=== PATIENT | female | born 2000 | race Caucasian/White ===

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

== ENCOUNTER → 2018-01-11 | Outpatient (REF) | payer OTHER ==
[2018-01-11 17:36] LABS: ALBUMIN 4.1 GM/DL (3.2-5.2); ALBUMIN/GLOBULIN RATIO 1.03 (1.00-1.93); ALKALINE PHOSPHATASE 88 U/L (45-117); ALT/SGPT 144 U/L (12-78); ANION GAP 8 MEQ/L (8-16); AST/SGOT 85 U/L (7-37); BILIRUBIN,TOTAL 0.5 MG/DL (0.2-1.0); BLOOD UREA NITROGEN 9 MG/DL (7-18); CALCIUM LEVEL 8.8 MG/DL (8.5-10.1); CARBON DIOXIDE LEVEL 28 MEQ/L (21-32); CHLORIDE LEVEL 103 MEQ/L (98-107); CREATININE FOR GFR 0.72 MG/DL (0.55-1.30); FREE T3 4.9 PG/ML (2.9-4.5); FREE T4 1.39 NG/DL (0.78-1.33); GLUCOSE, FASTING 81 MG/DL (70-100); POTASSIUM SERUM 3.9 MEQ/L (3.5-5.1); SODIUM LEVEL 139 MEQ/L (136-145); TOTAL PROTEIN 8.1 GM/DL (6.4-8.2)
[2018-01-11 19:08] LABS: THYROGLOBULIN ANTIBODY 267.9 U/ML (<60.0); THYROID PEROXIDASE ANTIBODY 34.2 U/ML (<60.0)
[2018-01-11 19:16] LABS: BASO % 0.2 % (0.0-1.0); EOS % 0.6 % (0.0-3.0); HEMATOCRIT 43.6 % (36.0-47.0); HEMOGLOBIN 14.3 g/dl (12.0-16.0); IMMATURE GRANULOCYTE % 0.2 % (0-3.0); LYMPH % 42.5 % (24.0-44.0); MEAN CORPUSCULAR HEMOGLOBIN 28.7 pg (27.0-33.0); MEAN CORPUSCULAR HGB CONC 32.8 g/dl (32.0-36.5); MEAN CORPUSCULAR VOLUME 87.6 fl (80.0-96.0); MONO # 0.4 10^3/uL (0.0-0.8); MONO % 8.2 % (0.0-5.0); NEUTROPHILS # 2.3 10^3/uL (1.8-7.7); NEUTROPHILS % 48.3 % (36.0-66.0); PLATELET COUNT, AUTOMATED 234 10^3/uL (150-450); RED BLOOD COUNT 4.98 10^6/uL (4.00-5.40); RED CELL DISTRIBUTION WIDTH 12.2 % (11.5-14.5); WHITE BLOOD COUNT 4.7 10^3/uL (4.0-10.0)
[2018-01-11 19:54] LABS: AMORPHOUS SEDIMENT LARGE (NEGATIVE); APPEARANCE, URINE TURBID (CLEAR); BACTERIA, URINE AUTO NEGATIVE (NEGATIVE); BILIRUBIN, URINE AUTO NEGATIVE (NEGATIVE); BLOOD, URINE BLOOD NEGATIVE (NEGATIVE); COLOR, URINE YELLOW (YELLOW); GLUCOSE, URINE (UA) AUTO NEGATIVE (NEGATIVE); KETONE, URINE AUTO NEGATIVE (NEGATIVE); LEUKOCYTE ESTERASE, URINE AUTO 3+ (NEGATIVE); MUCUS, URINE SMALL (NEGATIVE); NITRITE, URINE AUTO NEGATIVE (NEGATIVE); PROTEIN, URINE AUTO 1+ mg/dL (NEGATIVE); RBC, URINE AUTO 0 /HPF (0-3); SPECIFIC GRAVITY URINE AUTO 1.027 (1.002-1.035); SQUAMOUS EPITHELIAL CELL UR AU 45 /HPF (0-6); UROBILINOGEN, URINE AUTO 0.2 mg/dL (0.0-2.0); WBC, URINE AUTO 29 /HPF (0-3)
[2018-01-12 15:27] LABS: C REACTIVE PROTEIN QUANTITATIV < 0.30 MG/DL (0.00-0.30); GAMMA GLUTAMYLTRANSPEPTIDASE 75 U/L (5-55)
[2018-01-13 10:25] LABS: HEPATITIS B SURFACE ANTIGEN NEGATIVE (NEGATIVE)
[2018-01-13 10:53] LABS: HEPATITIS B CORE ANTIBODY IGM NEGATIVE (NEGATIVE)
[2018-01-13 10:55] LABS: HEPATITIS A ANTIBODY IGM NEGATIVE (NEGATIVE)
== END ==
LOC: M SFHCCAPE 09:30
DX: R94.6 Abnormal results of thyroid function studies (principal); R11.0 Nausea

== ENCOUNTER → 2018-01-14 | Outpatient (REF) | payer BC ==
[2018-01-19 00:06] LABS: TESTOSTERONE FREE (DIRECT) 1.3 pg/mL (Not Estab.)
== END ==
LOC: M LABWUC 15:18
DX: L68.0 Hirsutism (principal)
CPT/HCPCS: 84403

== ENCOUNTER → 2018-01-14 | Outpatient (CLI) | payer BC ==
[2018-01-14 18:30] LABS: ALBUMIN 3.7 GM/DL (3.2-5.2); ALBUMIN/GLOBULIN RATIO 0.95 (1.00-1.93); ALKALINE PHOSPHATASE 78 U/L (45-117); ALT/SGPT 171 U/L (12-78); ANION GAP 6 MEQ/L (8-16); AST/SGOT 72 U/L (7-37); BILIRUBIN,TOTAL 0.5 MG/DL (0.2-1.0); BLOOD UREA NITROGEN 12 MG/DL (7-18); C REACTIVE PROTEIN QUANTITATIV < 0.30 MG/DL (0.00-0.30); CALCIUM LEVEL 8.8 MG/DL (8.5-10.1); CARBON DIOXIDE LEVEL 28 MEQ/L (21-32); CHLORIDE LEVEL 107 MEQ/L (98-107); CREATININE FOR GFR 0.64 MG/DL (0.55-1.30); GLUCOSE, FASTING 74 MG/DL (70-100); POTASSIUM SERUM 3.9 MEQ/L (3.5-5.1); SODIUM LEVEL 141 MEQ/L (136-145); TOTAL PROTEIN 7.6 GM/DL (6.4-8.2)
[2018-01-14 19:05] LABS: ERYTHROCYTE SEDIMENTATION RATE 7 mm/hr (0-20)
== END ==
LOC: M WUC 11:58
DX: R74.8 Abnormal levels of other serum enzymes (principal)
CPT/HCPCS: 80053

== ENCOUNTER → 2018-01-15 | Outpatient (CLI) | payer BC | LOC: M RAD 08:37 | DX: R74.8 Abnormal levels of other serum enzymes (principal) | CPT/HCPCS: 76700 ==

== ENCOUNTER → 2018-02-04 | Outpatient (CLI) | payer BC ==
[2018-02-04 16:36] LABS: IRON (FE) 115 UG/DL (50-170); PERCENT SATURATION 30.3 % (13.2-45.0); TOTAL IRON BINDING CAPACITY 379 UG/DL (250-450)
[2018-02-05 11:26] LABS: CONTROL LINE HPYORI INT CTR LINE PRESENT; H PYLORI QUALITATIVE IgG NEGATIVE (NEGATIVE)
[2018-02-05 11:53] LABS: HEPATITIS B SURFACE ANTIGEN NEGATIVE (NEGATIVE)
[2018-02-05 11:56] LABS: HEPATITIS B SURFACE ANTIBODY NEGATIVE (POSITIVE)
[2018-02-05 12:14] LABS: HEP C VIRUS AB SCREEN MEDICARE 0.1 INDEX (<0.8)
[2018-02-05 12:15] LABS: HEPATITIS B CORE ANTIBODY IGM NEGATIVE (NEGATIVE)
[2018-02-05 12:20] LABS: HEPATITIS A ANTIBODY IGM NEGATIVE (NEGATIVE)
[2018-02-09 08:10] LABS: ANTI-MITOCHONDRIAL ANTIBODY 4.5 Units (0.0-20.0); ANTI-SMOOTH MUSCLE ANTIBODY 14 Units (0-19); ANTINUCLEAR ANTIBODIES DIRECT Negative (Negative); HEPATITIS A IgG TOTAL Positive (Negative); IGASUB3 61.1 mg/dL (13.4-97.9); IgA SERUM (part of Subclasses) 244 mg/dL (87-352); TISSUE TRANSGLUTAMINASE IgA <2 U/mL (0-3)
[2018-02-09 08:10] LABS: H PYLORI SERUM QUANT IGM <9.0 units (0.0-8.9)
== END ==
LOC: M WUC 13:29
DX: R11.2 Nausea with vomiting, unspecified (principal)
CPT/HCPCS: 83550

== ENCOUNTER → 2018-07-19 | Outpatient (CLI) | payer BC ==
[2018-07-19 19:29] LABS: ALBUMIN 3.9 GM/DL (3.2-5.2); ALBUMIN/GLOBULIN RATIO 0.95 (1.00-1.93); ALKALINE PHOSPHATASE 79 U/L (45-117); ALT/SGPT 31 U/L (12-78); AST/SGOT 15 U/L (7-37); BILIRUBIN,DIRECT 0.1 MG/DL (0.0-0.2); BILIRUBIN,TOTAL 0.5 MG/DL (0.2-1.0); CHOLESTEROL LEVEL 185 MG/DL (<200); CHOLESTEROL RISK RATIO 1.868 (<5); CPK CREATINE PHOSPHOKINASE 108 U/L (26-192); GAMMA GLUTAMYLTRANSPEPTIDASE 17 U/L (5-55); HDL CHOLESTEROL 99 MG/DL (>40); LDH LACTATE DEHYDROGENASE 206 U/L (84-246); NON-HDL-C 86 MG/DL; TRIGLYCERIDES LEVEL 85 MG/DL (<150)
== END ==
LOC: M WUC 17:07
DX: R94.5 Abnormal results of liver function studies (principal)
CPT/HCPCS: 82550

== ENCOUNTER → 2018-10-19 | Outpatient (CLI) | payer BC ==
[2018-10-19 12:41] LABS: BASO % 0.2 % (0.0-1.0); EOS # 0.1 10^3/uL (0.0-0.50); EOS % 0.8 % (0.0-3.0); HEMATOCRIT 43.5 % (36.0-47.0); HEMOGLOBIN 14.3 g/dl (12.0-15.5); IMMATURE GRANULOCYTE % 0.4 % (0-3.0); LYMPH # 1.9 10^3/uL (1.5-6.5); MEAN CORPUSCULAR HEMOGLOBIN 30.2 pg (27.0-33.0); MEAN CORPUSCULAR HGB CONC 32.9 g/dl (32.0-36.5); MEAN CORPUSCULAR VOLUME 91.8 fl (80.0-96.0); MONO # 0.8 10^3/uL (0.0-0.8); MONO % 8.7 % (0.0-5.0); NEUTROPHILS # 6.5 10^3/uL (1.8-7.7); NEUTROPHILS % 69.9 % (36.0-66.0); PLATELET COUNT, AUTOMATED 272 10^3/uL (150-450); RED BLOOD COUNT 4.74 10^6/uL (4.00-5.40); RED CELL DISTRIBUTION WIDTH 12.6 % (11.5-14.5); WHITE BLOOD COUNT 9.2 10^3/uL (4.0-10.0)
[2018-10-19 13:59] LABS: CHLAMYDIA DNA AMPLIFICATION NEGATIVE (NEGATIVE); GC DNA AMPLIFICATION NEGATIVE (NEGATIVE)
[2018-10-20 08:31] LABS: HBsAg Prenatal NEGATIVE (NEGATIVE); HIV 1&2 SCREEN CENTAUR NEGATIVE (NEGATIVE); RUBELLA IgG QUALITATIVE IMMUNE (IMMUNE)
[2018-10-20 08:31] LABS: HEPATITIS C VIRUS ABY INDEX 0.1 INDEX (<0.8)
== END ==
LOC: M WUC 09:18
DX: Z34.81 Encounter for supervision of other normal pregnancy, first trimester (principal); Z3A.08 8 weeks gestation of pregnancy
CPT/HCPCS: 86762

== ENCOUNTER → 2018-12-16 | Outpatient (CLI) | payer BC ==
[~2018-12-16] MED LIST: PREVTAB2 PO; ZOFR4TAB14 PO
== END ==
LOC: M SMT 10:52
PROVIDERS: ATTEND Advanced Practice Midwife
DX: Z13.79 Encounter for other screening for genetic and chromosomal anomalies (principal)

== ENCOUNTER 2018-12-25 13:02 | Emergency (ER) | payer BC ==
[~2018-12-25] VITALS: Ht 162.6 cm; Wt 62.3 kg
[2018-12-25] MEDS ORDERED: ONDANSETRON 4MG/2ML VIAL (J2405) IV ONE (14:45)
[2018-12-25] MEDS ORDERED: NS 1,000 ML IV ONE (14:45)
[2018-12-25 15:19] LABS: BASO % 0.1 % (0.0-1.0); EOS % 0.5 % (0.0-3.0); HEMATOCRIT 39.2 % (36.0-47.0); HEMOGLOBIN 13.4 g/dl (12.0-15.5); LYMPH # 1.7 10^3/uL (1.5-6.5); LYMPH % 19.3 % (24.0-44.0); MEAN CORPUSCULAR HEMOGLOBIN 30.6 pg (27.0-33.0); MEAN CORPUSCULAR HGB CONC 34.2 g/dl (32.0-36.5); MEAN CORPUSCULAR VOLUME 89.5 fl (80.0-96.0); MONO # 0.6 10^3/uL (0.0-0.8); MONO % 7.2 % (0.0-5.0); NEUTROPHILS # 6.3 10^3/uL (1.8-7.7); NEUTROPHILS % 72.7 % (36.0-66.0); PLATELET COUNT, AUTOMATED 255 10^3/uL (150-450); RED BLOOD COUNT 4.38 10^6/uL (4.00-5.40); WHITE BLOOD COUNT 8.6 10^3/uL (4.0-10.0)
[2018-12-25 15:34] VITALS: BP 91/54
[2018-12-25 15:37] LABS: BLOOD UREA NITROGEN 8 MG/DL (7-18); CALCIUM LEVEL 8.5 MG/DL (8.5-10.1); CARBON DIOXIDE LEVEL 22 MEQ/L (21-32); CHLORIDE LEVEL 108 MEQ/L (98-107); CREATININE FOR GFR 0.48 MG/DL (0.55-1.30); GLUCOSE, FASTING 75 MG/DL (70-100); POTASSIUM SERUM 4.1 MEQ/L (3.5-5.1); SODIUM LEVEL 139 MEQ/L (136-145)
--- NOTE | 2018-12-25 16:34 | REP ---
Clinical: Anatomical evaluation. Comparison: None . Findings: Examination demonstrates a single live intrauterine in cephalic presentation. motion is identified by technologist. Placenta is noted posterior and grade grade zero without evidence for placenta previa or abruption. Amniotic fluid volume is normal. Cervix measures 3.5 cm in length and appears closed. No evidence for nuchal cord. Gestational age by LMP 18 weeks 2 days with RICK 05/26/2019 . Gestational age by current measurements 18 weeks 3 days with RICK 05/25/2019 . FHR equals 144 beats per minute. BPD 4.0 cm 18 weeks 1 day HC 14.6 cm 17 weeks 5 days AC 13.8 cm 19 weeks 1 day FL 2.6 cm 17 weeks 6 days HL 2.9 cm 19 weeks 2 days HC/AC ratio 1.06 Estimated weight 242 grams ( 53rd percentile). Anatomical assessment demonstrates normal structures including cranium, cavum, diaphragm, stomach, cord insertion/three-vessel cord, bladder. Limited evaluation of the cord plexus, posterior fossa, facial features, lungs, heart/ventricular outflow tracts, kidneys, spine and extremities. Impression: Single live intrauterine in cephalic presentation demonstrating appropriate interval growth. Anatomical limitations of as noted above warrant reevaluation and follow-up. Electronically Signed by Buster Holbrook MD 12/25/2018 04:25 P
[2018-12-25] MEDS ORDERED: MACR100C43 PO (16:51)
== END 2018-12-25 17:15 | disposition home or self-care (01) ==
LOC: M ED 13:02
DX: O23.10 Infections of bladder in pregnancy, unspecified trimester (principal); Z3A.18 18 weeks gestation of pregnancy
CPT/HCPCS: 76811; 80048; 81001; 85025; 87086; 96374; 99284; J2405

== ENCOUNTER → 2019-01-12 | Outpatient (CLI) | payer BC ==
[~2019-01-12] MED LIST changes: +MACR100C43 PO
--- NOTE | 2019-01-12 13:03 | REP ---
Obstetric ultrasound for follow-up of anatomy: On the prior study dated 12/25/2018. The choroid plexus, intracranial posterior fossa, facial features, lungs, heart/ventricular outflow tracts, kidneys, spine and upper lower extremities could not be adequately visualized because of position. On the study today there is a single intrauterine gestation in a khushi breech presentation. There is motion and cardiac activity. The heart rate is 143 beats per minute. The placenta is posterior / fundal without evidence of previa or abruptio. The placenta is grade zero maturity. Amniotic fluid volume subjectively is normal. The cervix measures 3.1 cm length. The gestational age by the ultrasound today is 20 weeks 4 days with an RICK of 05/28/2019. The gestational age by the first ultrasound is 21 weeks 0 days with an RICK of 05/24/2019. Gestational age by LMP is 20 weeks 6 days/RICK 05/26/2019. weight is 367 grams (0 pounds, 12 ounces). This is the 30th percentile for 20 weeks 6 days. The following anatomic structures are identified and are unremarkable: Intracranial lateral ventricles, choroid plexus, cerebellum, cisterna magna, upper lip, face, facial profile, lungs, four-chamber heart, right and left cardiac ventricular outflow tracts, diaphragm, stomach, cord insertion, three-vessel cord, kidneys, bladder, spine and upper lower extremities. No anomalies are identified. Electronically Signed by Gasper Zamorano MD 01/12/2019 12:54 P
== END ==
LOC: M RAD 11:09
PROVIDERS: ATTEND Advanced Practice Midwife
DX: Z34.82 Encounter for supervision of other normal pregnancy, second trimester (principal); Z3A.20 20 weeks gestation of pregnancy

== ENCOUNTER 2019-02-13 11:24 | Outpatient (CLI) | payer BC ==
[~2019-02-13] VITALS: Ht 162.6 cm; Wt 65.2 kg
[2019-02-13 11:47] VITALS: BP 97/63
--- NOTE | 2019-02-13 13:13 | NUR ---
L&D triage note 18-year-old G1, P0 at 25+2 weeks gestation. Presents with complaint of decreased movement. No VB/LOF/uctx. PN course uncomplicated thus far. Normotensive, normal HR, afebrile. EFM: reactive, mod guillermo, normal baseline, no decels. [place]on: no contraction pattern. US,narayan: breech, MVP 5cm; multiple pockets >2cm. A/P: 18yo at 25+2 weeks. Decreased FM. Reassuring monitoring / modified BPP. Pt offered reassurance. -Routine precautions reviewed -Follow up in office as scheduled. Shant Brown DO
== END 2019-02-13 13:15 | disposition home or self-care (01) ==
LOC: M LDO 11:24
PROVIDERS: ATTEND Obstetrics & Gynecology
DX: O36.8120 Decreased fetal movements, second trimester, not applicable or unspecified (principal); Z3A.25 25 weeks gestation of pregnancy
CPT/HCPCS: G0378; G0463

== ENCOUNTER → 2019-03-10 | Outpatient (CLI) | payer BC, MEDICAID ==
[2019-03-10 13:29] LABS: BASO % 0.4 % (0.0-1.0); EOS # 0.1 10^3/uL (0.0-0.50); EOS % 1.1 % (0.0-3.0); HEMATOCRIT 34.9 % (36.0-47.0); HEMOGLOBIN 11.4 g/dl (12.0-15.5); LYMPH # 1.7 10^3/uL (1.5-6.5); LYMPH % 17.4 % (24.0-44.0); MEAN CORPUSCULAR HEMOGLOBIN 30.5 pg (27.0-33.0); MEAN CORPUSCULAR HGB CONC 32.7 g/dl (32.0-36.5); MEAN CORPUSCULAR VOLUME 93.3 fl (80.0-96.0); MONO # 0.7 10^3/uL (0.0-0.8); MONO % 6.9 % (0.0-5.0); NEUTROPHILS # 7.3 10^3/uL (1.8-7.7); NEUTROPHILS % 73.5 % (36.0-66.0); PLATELET COUNT, AUTOMATED 283 10^3/uL (150-450); RED BLOOD COUNT 3.74 10^6/uL (4.00-5.40)
== END ==
LOC: M SMT 10:09
PROVIDERS: ATTEND Advanced Practice Midwife
DX: Z34.02 Encounter for supervision of normal first pregnancy, second trimester (principal); Z3A.00 Weeks of gestation of pregnancy not specified

== ENCOUNTER → 2019-05-02 | Outpatient (REF) | payer BC | LOC: M LAB REF 16:54 | PROVIDERS: ATTEND Specialist | DX: Z34.03 Encounter for supervision of normal first pregnancy, third trimester (principal) ==

== ENCOUNTER 2019-05-15 10:58 | Outpatient (CLI) | payer BC, MEDICAID ==
[~2019-05-15] VITALS: Ht 162.6 cm; Wt 75.1 kg
[2019-05-15 11:20] VITALS: BP 109/65
== END 2019-05-15 12:20 | disposition home or self-care (01) ==
LOC: M LDO 10:58
PROVIDERS: ATTEND Specialist
DX: O26.893 Other specified pregnancy related conditions, third trimester (principal); N89.8 Other specified noninflammatory disorders of vagina; O47.1 False labor at or after 37 completed weeks of gestation; Z3A.38 38 weeks gestation of pregnancy
CPT/HCPCS: 59025; G0378; G0463

== ENCOUNTER 2019-05-20 00:39 | Inpatient (IN) | payer BC, MEDICAID ==
[2019-05-20] VITALS (48 sets, daily range): BP systolic 97–135; BP diastolic 53–88
[~2019-05-20] VITALS: Ht 162.6 cm; Wt 77.6 kg
[2019-05-20] MEDS ORDERED: miSOPROStol 50 MCG 1/2 TAB (S0191) SL SCH (01:00)
--- NOTE | 2019-05-20 06:41 | HPE ---
DATE OF ADMISSION: 05/20/2019 18-year-old, (G) 1, para (P) 0 female at 39 and 0/7 weeks gestation by last menstrual period (LMP) consistent with 8 week ultrasound and expected date of confinement (EDC) is 05/27/2019 who presents for labor induction. The patient has had intermittent contractions for the last three days. She has been unable to sleep due to pain from the contractions. The contractions however have been inconsistent. She denies vaginal bleeding. COURSE: The patient initiated care at 8 weeks gestation. First trimester blood pressure was 102/60. Weight was 143 pounds. course was unremarkable. MEDICAL HISTORY: Noncontributory. SURGICAL HISTORY: None. ALLERGIES: None. SOCIAL HISTORY: The patient lives in [place]. The father of the baby is involved. The patient denies cigarettes, alcohol or drug use. FAMILY HISTORY: Noncontributory. PHYSICAL EXAMINATION: 114/74. Pulse 84. She is in no apparent distress. Head and Neck Exam: Normal. Lungs: Clear. Heart: Regular rate and rhythm. Abdomen: Nontender. Gravid. heart tones Category I. Cervix: 2 cm, 50%, -2, vertex. Contractions irregular. Extremities: Nontender. LABS: B positive. Rubella immune. RPR nonreactive. GBS positive on 05/02/2019. ASSESSMENT: 18-year-old, G1, P0, at 39 and 0/7 weeks gestation who presents with contractions, but not in labor. PLAN: For labor induction. The patient is admitted on 05/20/2019.
--- NOTE | 2019-05-20 08:28 | IPNPDOC ---
Text Note Date of Service The patient was seen on 05/20/19. NOTE Coping well at present Denies LOF or bleeding Cat I tracing, UC irregular SVE /, posterior Start pitocin. Pt plans epidural Bekah Mcdaniel CNM May 20, 2019 08:28
[2019-05-20] MEDS ORDERED: OXYTOCIN 30 UNITS IN 0.9% NaCl 500ML IV BAG (J2590) As Ordered ONE (08:29)
[2019-05-20] MEDS ORDERED: OXYTOCIN DRIP 30 UNITS in APPROPRIATE DILUENT 1 EA IV SCH (08:30)
[2019-05-20] MEDS: LR 1,000 ML IV SCH ×4 (08:54→17:05)
[2019-05-20 09:10] LABS: HEMATOCRIT 32.7 % (36.0-47.0); HEMOGLOBIN 10.4 g/dl (12.0-15.5); MEAN CORPUSCULAR HEMOGLOBIN 27.6 pg (27.0-33.0); MEAN CORPUSCULAR HGB CONC 31.8 g/dl (32.0-36.5); MEAN CORPUSCULAR VOLUME 86.7 fl (80.0-96.0); PLATELET COUNT, AUTOMATED 291 10^3/uL (150-450); RED BLOOD COUNT 3.77 10^6/uL (4.00-5.40); WHITE BLOOD COUNT 14.4 10^3/uL (4.0-10.0)
[2019-05-20] MEDS ORDERED: BUTORPHANOL 2 MG/ML INJ (J0595) IV ONE (11:00)
[2019-05-20] MEDS ORDERED: PROMETHAZINE INJ 25 MG/ML VIAL (J2550) IV ONE (11:00)
[2019-05-20] MEDS ORDERED: PENICILLIN G POTASSIUM IV 5 MU in D5W MINI-BAG PLUS 100 ML IV STA (11:13)
[2019-05-20] MEDS ORDERED: FENTANYL 2MCG/ML ROPIVACAINE 0.2% IN 0.9% NACL 100ML IVBAG As Ordered ONE (12:01)
[2019-05-20] MEDS ORDERED: ONDANSETRON 4MG/2ML VIAL (J2405) IV PRN (13:45)
[2019-05-20] MEDS ORDERED: NALOXONE INJ 0.4 MG/1 ML VIAL (J2310) IV PRN (13:45)
[2019-05-20] MEDS ORDERED: FENTANYL/ROPIVACAINE/NACL BAG 100 ML EPIDURAL SCH (13:45)
[2019-05-20] MEDS ORDERED: LACTATED RINGER'S 1000 ML IV PRN (13:45)
[2019-05-20] MEDS ORDERED: EPIDURAL/PCA KEYS XX PRN (13:45)
[2019-05-20] MEDS ORDERED: EPIDURAL COMMENT XX SCH (13:45)
[2019-05-20] MEDS ORDERED: ePHEDrine SULFATE 25 MG/5 ML(5MG/ML) SYRINGE IV PRN (13:45)
[2019-05-20] MEDS ORDERED: diphenhydrAMINE INJ 50MG/ML VIAL (J1200) IV PRN (13:45)
[2019-05-20] MEDS ORDERED: REFRIGERATOR IV KEYS XX PRN (13:45)
[2019-05-20] MEDS: PENICILLIN G POTASSIUM IV 2.5 MU in APPROPRIATE DILUENT 1 EA IV SCH ×2 (15:33→19:18)
--- NOTE | 2019-05-20 16:27 | IPNPDOC ---
Text Note Date of Service The patient was seen on 05/20/19. NOTE Remains comfortable with epidural SVE unchanged AROM clear fluid, IUPC/FSE placed 2 minute deceleration following supine position, relieved with position change, IVF bolus, O2. UC 2-3 minutes apart x 60 seconds. VS,Fishbone, I+O VS, Fishbone, I+O Laboratory Tests 05/20/19 08:43 Red Blood Count 3.77 L, Mean Corpuscular Volume 86.7, Mean Corpuscular Hemoglobin 27.6, Mean Corpuscular Hemoglobin Concent 31.8 L, Red Cell Distribution Width 14.0 Vital Signs Date Time Temp Pulse Resp B/P (MAP) Pulse Ox O2 Delivery O2 Flow Rate FiO2 05/20/19 14:16 66 18 116/73 (87) 05/20/19 12:31 97.3 Bekah Mcdaniel CNM May 20, 2019 16:27
[2019-05-20] MEDS ORDERED: RHOGAM 300 MCG (1500 IU) INJ (J2790) IM SCH (20:30)
[2019-05-20] MEDS ORDERED: ANUSOL HC CREAM 30GM TOP PRN (20:30)
[2019-05-20] MEDS ORDERED: IBUPROFEN 600 MG TAB PO PRN (20:30)
[2019-05-20] MEDS ORDERED: MOM 30ML SUSPENSION UDC PO PRN (20:30)
[2019-05-20] MEDS ORDERED: DIBUCAINE 1% OINTMENT 30GM TOP PRN (20:30)
[2019-05-20] MEDS ORDERED: ACETAMINOPHEN 500 MG TAB PO PRN (20:30)
[2019-05-20] MEDS ORDERED: MEASLES,MUMPS,RUBELLA VACCINE INJ (MMR-II) (90707) SC SCH (20:30)
[2019-05-20] MEDS ORDERED: DOCUSATE SODIUM 100 MG CAP PO PRN (20:30)
[2019-05-20] MEDS ORDERED: METHYLERGONOVINE MALEATE 0.2 MG TAB PO PRN (20:30)
[2019-05-20] MEDS ORDERED: ACETAMINOPHEN TAB 650MG DOSE (2X325MG) PO PRN (20:30)
[2019-05-20 20:33] LABS: CORD GAS ABE A -5.8; CORD GAS HCO3 A 24.9 MEQ/L; CORD GAS PCO2 A 71.5 mmHg; CORD GAS PH A 7.159 UNITS; CORD GAS PO2 A 31.8 mmHg; CORD GAS SBC A 18.8 MEQ/L; CORD GAS TCO2 A 27.1 MEQ/L
[2019-05-20 20:37] LABS: CORD GAS ABE V -5.5; CORD GAS HCO3 V 20.8 MEQ/L; CORD GAS O2 SAT V 72.3 %; CORD GAS PCO2 V 43.1 mmHg; CORD GAS PH V 7.301 UNITS; CORD GAS PO2 V 35.8 mmHg; CORD GAS SBC V 19.4 MEQ/L; CORD GAS TCO2 V 22.1 MEQ/L
--- NOTE | 2019-05-20 20:37 | DNPDOC ---
[facility] Delivery Note Delivery Note DATE OF DELIVERY: April PREDELIVERY DIAGNOSIS: 39-0/7 weeks' gestation and labor. POST DELIVERY DIAGNOSIS: Delivered. PROCEDURE: Spontaneous vaginal delivery. PROVIDER: Bekah Mcdaniel CNM ANESTHESIA: Epidural. ESTIMATED BLOOD LOSS: 300 mL. FINDINGS: 6 pound 9 ounce, 2980gm female , Score 8/9, nuchal cord x 1 DELIVERY SUMMARY: Patient is a 18-year-old 1 now para 1-0-0-1 who was admitted to labor and delivery for prodromal labor at 39 weeks. She received misoprostol followed by pitocin augmentation of labor, receiving adequate GBS prophylaxis. She utilized an epidural for labor coping. AROM clear fluid 1612 with IUPC and FSE placement. FD 1935. Viable female delivered GRAY, restituted to ROP and delivering through nuchal cord @ 2001. Spontaneous respirations with stimulation, transitioned on maternal abdomen. Cord doubly clamped and cut once pulsations ceased by FOB under my direction. Cord gases obtained and pending. Apgars 8/9. Placenta beltran, intact with 3 v cord @ 2006. Fundus firmed with massage and IV pitocin bolus. EBL 300ml. Perineum intact, two small 1st degree left vaginal lacerations repaired with 3-0 vicryl rapide. Infant wt 6#9, 2980 gm. Sponge, sharp and instrument count correct. Parents are naming their daughter Layla. Bekah Mcdaniel CNM May 20, 2019 20:37
[2019-05-21] MEDS: IBUPROFEN 800 MG TAB PO PRN ×3 (01:08→21:07)
[2019-05-21 06:00] VITALS: BP 101/59
--- NOTE | 2019-05-21 06:37 | IPNPDOC ---
Text Note Date of Service The patient was seen on 05/21/19. NOTE PP #1 Feels well. Adequate pain management. OOB independently. on demand. Voiding VSS, afebrile, normotensive Breasts soft, nipples intact Fundus firm, NT, down 1 FB Lochia rubra light without odor Perineum intact PP #1, early nursing with support Routine care. Anticipate D/C in am VS,Fishbone, I+O VS, Fishbone, I+O Laboratory Tests 05/20/19 08:43 Red Blood Count 3.77 L, Mean Corpuscular Volume 86.7, Mean Corpuscular Hemoglobin 27.6, Mean Corpuscular Hemoglobin Concent 31.8 L, Red Cell Distribution Width 14.0 Vital Signs Date Time Temp Pulse Resp B/P (MAP) Pulse Ox O2 Delivery O2 Flow Rate FiO2 05/21/19 06:00 97.5 68 17 101/59 (73) 97 I&O- Last 24 Hours up to 6 AM 05/21/19 05:59 Intake Total 5513.2 ml Output Total 2400 ml Balance 3113.2 ml Bekah Mcdaniel May 21, 2019 06:37
[2019-05-21] MEDS: PRENATAL VITAMINS CHEWABLE TABLET PO SCH (11:28)
[2019-05-21 18:00] VITALS: BP 110/68
[2019-05-22 05:56] VITALS: BP 106/67
[2019-05-22] MEDS: PRENATAL VITAMINS CHEWABLE TABLET PO SCH (07:26)
[2019-05-22] MEDS ORDERED: PRENTAB9 PO (09:50)
[2019-05-22] MEDS ORDERED: MAPA500T2 PO ×2 (09:52)
[2019-05-22] MEDS ORDERED: IBUP-1114 PO ×2 (09:53)
[2019-05-22] MEDS ORDERED: COLA100C5 PO (09:54)
== END 2019-05-22 12:40 | disposition home or self-care (01) | DRG 560 ==
LOC: M LDI 00:39 → M OBS 22:35
PROVIDERS: ADMIT Specialist; ATTEND Specialist
PROC: 10E0XZZ Delivery of Products of Conception, External Approach (ICD-10-PCS; principal; 2019-05-20)
PROC: 0HQ9XZZ Repair Perineum Skin, External Approach (ICD-10-PCS; 2019-05-20)
PROC: 10907ZC Drainage of Amniotic Fluid, Therapeutic from Products of Conception, Via Natural or Artificial Opening (ICD-10-PCS; 2019-05-20)
DX: O70.0 First degree perineal laceration during delivery (principal); O99.820 Streptococcus B carrier state complicating pregnancy; Z37.0 Single live birth; Z3A.39 39 weeks gestation of pregnancy; O69.82X0 Labor and delivery complicated by other cord entanglement, without compression, not applicable or unspecified

== ENCOUNTER 2020-01-30 08:28 | Emergency (ER) | payer BC, MEDICAID ==
[~2020-01-30] VITALS: Ht 165.1 cm; Wt 67.8 kg
[~2020-01-30 08:28] MED LIST changes: +COLA100C5 PO; +IBUP-1114 PO; +MAPA500T2 PO; +PRENTAB9 PO
[2020-01-30] MEDS ORDERED: AMOX875T (08:35)
[2020-01-30] MEDS ORDERED: XULA1DIS (08:35)
[2020-01-30 09:46] LABS: BASO % 0.3 % (0.0-1.0); EOS % 0.2 % (0.0-3.0); HEMATOCRIT 40.1 % (36.0-47.0); HEMOGLOBIN 13.2 g/dl (12.0-15.5); LYMPH # 1.4 10^3/uL (1.5-5.0); LYMPH % 22.1 % (24.0-44.0); MEAN CORPUSCULAR HEMOGLOBIN 28.8 pg (27.0-33.0); MEAN CORPUSCULAR HGB CONC 32.9 g/dl (32.0-36.5); MEAN CORPUSCULAR VOLUME 87.6 fl (80.0-96.0); MONO # 0.6 10^3/uL (0.0-0.8); NEUTROPHILS # 4.4 10^3/uL (1.5-8.5); NEUTROPHILS % 68.2 % (36.0-66.0); PLATELET COUNT, AUTOMATED 232 10^3/uL (150-450); RED BLOOD COUNT 4.58 10^6/uL (4.00-5.40); WHITE BLOOD COUNT 6.5 10^3/uL (4.0-10.0)
[2020-01-30 09:59] LABS: INR 1.02; PROTHROMBIN TIME 13.1 SECONDS (11.8-14.0)
[2020-01-30 10:00] LABS: PARTIAL THROMBOPLASTIN TIME 32.1 SECONDS (25.0-38.4)
[2020-01-30 10:08] LABS: BLOOD UREA NITROGEN 9 MG/DL (7-18); CALCIUM LEVEL 8.4 MG/DL (8.5-10.1); CARBON DIOXIDE LEVEL 27 MEQ/L (21-32); CHLORIDE LEVEL 107 MEQ/L (98-107); CREATININE FOR GFR 0.64 MG/DL (0.55-1.30); GLOMERULAR FILTRATION RATE > 60.0 (>60); GLUCOSE, FASTING 92 MG/DL (70-100); POTASSIUM SERUM 4.1 MEQ/L (3.5-5.1); SODIUM LEVEL 138 MEQ/L (136-145)
[2020-01-30] MEDS ORDERED: MAGICMW SSP (10:17)
[2020-01-30] MEDS ORDERED: IBUP-1022 PO (10:17)
[2020-01-30 10:27] VITALS: BP 112/60
== END 2020-01-30 10:38 | disposition home or self-care (01) ==
LOC: M ED 08:28
DX: R59.0 Localized enlarged lymph nodes (principal); B08.5 Enteroviral vesicular pharyngitis

== ENCOUNTER → 2020-11-02 | Outpatient (CLI) | payer BC, MEDICAID ==
[~2020-11-02] MED LIST changes: +AMOX875T; +IBUP-1022 PO; +MAGICMW SSP; +XULA1DIS
[2020-11-02 15:49] LABS: BASO % 0.2 % (0.0-1.0); EOS # 0.1 10^3/uL (0.0-0.5); EOS % 0.8 % (0.0-3.0); LYMPH % 17.5 % (24.0-44.0); MEAN CORPUSCULAR HEMOGLOBIN 29.2 pg (27.0-33.0); MEAN CORPUSCULAR HGB CONC 32.4 g/dl (32.0-36.5); MONO # 0.6 10^3/uL (0.0-0.8); MONO % 5.2 % (0.0-5.0); NEUTROPHILS # 8.4 10^3/uL (1.5-8.5); NEUTROPHILS % 75.9 % (36.0-66.0); PLATELET COUNT, AUTOMATED 265 10^3/uL (150-450); RED BLOOD COUNT 4.11 10^6/uL (4.00-5.40); WHITE BLOOD COUNT 11.1 10^3/uL (4.0-10.0)
[2020-11-02 17:08] LABS: HIV 1&2 SCREEN CENTAUR NEGATIVE (NEGATIVE)
== END ==
LOC: M WUC 13:17
PROVIDERS: ATTEND Obstetrics & Gynecology
DX: Z34.91 Encounter for supervision of normal pregnancy, unspecified, first trimester (principal); Z3A.00 Weeks of gestation of pregnancy not specified

== ENCOUNTER → 2020-12-03 | Outpatient (REF) | payer BC, MEDICAID | LOC: M PLALAB 15:44 | PROVIDERS: ATTEND Obstetrics & Gynecology | DX: Z34.92 Encounter for supervision of normal pregnancy, unspecified, second trimester (principal); Z3A.20 20 weeks gestation of pregnancy ==

== ENCOUNTER → 2020-12-03 | Outpatient (CLI) | payer BC, MEDICAID ==
--- NOTE | 2020-12-03 14:49 | REP ---
INDICATION: ANATOMY COMPARISON: None. TECHNIQUE: Transabdominal obstetrical ultrasound with color Doppler evaluation. FINDINGS: Examination demonstrates a single live intrauterine in cephalic presentation. motion is identified by technologist. Placenta is noted posterior and grade 1 without evidence for placenta previa or abruption. Amniotic fluid volume is normal. Cervix measures 3.2 cm in length and appears closed.. Gestational age by LMP 20 weeks 0 days with RICK 04/22/2021. Gestational age by current measurements 20 weeks 2 days with RICK 04/20/2021. FHR equals 149 beats per minute. BPD: 4.9 cm 20 weeks 6 days HC: 18.1 cm 20 weeks 4 days AC: 14.8 cm 20 weeks 1 day FL: 3.2 cm 19 weeks 6 days HL: 3.0 cm 20 weeks 0 days HC/AC: 1.22 Estimated weight 331 grams (50thpercentile). Anatomical assessment demonstrates normal structures including cranium, choroid plexus, cavum, cerebellum/posterior fossa, facial features, lungs, four-chamber heart/ventricular outflow tracts, diaphragm, stomach, cord insertion/three-vessel cord, kidneys/bladder, spine, and extremities. IMPRESSION: Single live intrauterine in cephalic presentation demonstrating appropriate interval growth. Anatomical assessment is complete and normal. No gross abnormalities are identified. <Electronically signed by Buster Holbrook > 12/03/20 [id number]
== END ==
LOC: M WHC 13:44
PROVIDERS: ATTEND Advanced Practice Midwife
DX: Z34.82 Encounter for supervision of other normal pregnancy, second trimester (principal); Z3A.20 20 weeks gestation of pregnancy

== ENCOUNTER 2020-12-28 15:57 | Outpatient (CLI) | payer BC, MEDICAID ==
[~2020-12-28] VITALS: Ht 162.6 cm; Wt 81.7 kg
[2020-12-28] MEDS ORDERED: LACTATED RINGER'S 1000 ML IV ONE ×2 (16:30→18:45)
[2020-12-28] MEDS ORDERED: ZOFR4TAB16 PO (16:30)
[2020-12-28 16:31] VITALS: BP 102/58
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
[2020-12-28 17:14] LABS: HEMATOCRIT 35.8 % (36.0-47.0); HEMOGLOBIN 11.5 g/dl (12.0-15.5); MEAN CORPUSCULAR HEMOGLOBIN 29.3 pg (27.0-33.0); MEAN CORPUSCULAR HGB CONC 32.1 g/dl (32.0-36.5); MEAN CORPUSCULAR VOLUME 91.3 fl (80.0-96.0); PLATELET COUNT, AUTOMATED 271 10^3/uL (150-450); RED BLOOD COUNT 3.92 10^6/uL (4.00-5.40); WHITE BLOOD COUNT 12.9 10^3/uL (4.0-10.0)
[2020-12-28 19:09] VITALS: BP 111/60
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
--- NOTE | 2020-12-28 21:41 | IPNPDOC ---
Text Note Date of Service The patient was seen on 12/28/20. NOTE Outpatient Feels improved after IV fluids. FH 140's-150's Mild uterine irritability not regularly perceived by patient KB 0.0000 Placenta posterior, no evidence abruption or previa Adequate fluid EFW 331gm, 50% Discharged home. Keep next appt. Note written for work to avoid combative clients. VS,Fishbone, I+O VS, Fishbone, I+O Laboratory Tests 12/28/20 16:55 Vital Signs Date Time Temp Pulse Resp B/P (MAP) Pulse Ox O2 Delivery O2 Flow Rate FiO2 12/28/20 19:09 97.1 77 18 111/60 (77) 100 Room Air Bekah Mcdaniel CNM Dec 28, 2020 21:41
== END 2020-12-28 19:35 | disposition home or self-care (01) ==
LOC: M LDO 15:57
PROVIDERS: ATTEND Advanced Practice Midwife
DX: O99.891 Other specified diseases and conditions complicating pregnancy (principal); O9A.212 Injury, poisoning and certain other consequences of external causes complicating pregnancy, second trimester; Z3A.23 23 weeks gestation of pregnancy
CPT/HCPCS: 76815; 85027; 85460; G0378; G0463

== ENCOUNTER → 2021-02-08 | Outpatient (REF) | payer BC, MEDICAID ==
[~2021-02-08] MED LIST changes: +ZOFR4TAB16 PO
[2021-02-08 18:53] LABS: HEMATOCRIT 33.6 % (36.0-47.0); HEMOGLOBIN 10.7 g/dl (12.0-15.5); MEAN CORPUSCULAR HEMOGLOBIN 28.5 pg (27.0-33.0); MEAN CORPUSCULAR HGB CONC 31.8 g/dl (32.0-36.5); MEAN CORPUSCULAR VOLUME 89.4 fl (80.0-96.0); PLATELET COUNT, AUTOMATED 300 10^3/uL (150-450); RED BLOOD COUNT 3.76 10^6/uL (4.00-5.40); WHITE BLOOD COUNT 10.3 10^3/uL (4.0-10.0)
== END ==
LOC: M PLALAB 13:37
PROVIDERS: ATTEND Advanced Practice Midwife
DX: Z3A.24 24 weeks gestation of pregnancy (principal)

== ENCOUNTER 2021-02-22 14:31 | Outpatient (CLI) | payer BC, MEDICAID ==
[~2021-02-22] VITALS: Ht 162.6 cm; Wt 87.3 kg
[2021-02-22] MEDS ORDERED: TUMS750C5 PO (15:04)
[2021-02-22 15:06] VITALS: BP 111/61
[2021-02-22] MEDS ORDERED: LR 1,000 ML IV ONE (15:25)
[2021-02-22] MEDS ORDERED: LOPERAMIDE 2 MG CAPLET PO PRN (15:25)
[2021-02-22 16:48] LABS: AMORPHOUS SEDIMENT SMALL (NEGATIVE); APPEARANCE, URINE CLOUDY (CLEAR); BACTERIA, URINE AUTO NEGATIVE (NEGATIVE); BILIRUBIN, URINE AUTO NEGATIVE (NEGATIVE); BLOOD, URINE BLOOD NEGATIVE (NEGATIVE); COLOR, URINE YELLOW (YELLOW); GLUCOSE, URINE (UA) AUTO NEGATIVE (NEGATIVE); KETONE, URINE AUTO NEGATIVE (NEGATIVE); LEUKOCYTE ESTERASE, URINE AUTO NEGATIVE (NEGATIVE); MUCUS, URINE SMALL (NEGATIVE); NITRITE, URINE AUTO NEGATIVE (NEGATIVE); PROTEIN, URINE AUTO NEGATIVE (NEGATIVE); RBC, URINE AUTO 0 /HPF (0-3); SPECIFIC GRAVITY URINE AUTO 1.014 (1.002-1.035); SQUAMOUS EPITHELIAL CELL UR AU 0 /HPF (0-6); UROBILINOGEN, URINE AUTO 0.2 mg/dL (0.0-2.0); WBC, URINE AUTO 0 /HPF (0-3)
[2021-02-22 17:07] LABS: AMPHETAMINES URINE REFLEX NEGATIVE (NEGATIVE); BENZODIAZEPINES URINE REFLEX NEGATIVE (NEGATIVE); CANNABINOIDS URINE REFLEX NEGATIVE (NEGATIVE); COCAINE METABOLITE URINE REFLE NEGATIVE (NEGATIVE); METHADONE URINE REFLEX NEGATIVE (NEGATIVE); OPIATES URINE REFLEX NEGATIVE (NEGATIVE); PHENCYCLIDINE URINE REFLEX NEGATIVE (NEGATIVE)
--- NOTE | 2021-02-22 17:08 | IPNPDOC ---
Text Note Date of Service The patient was seen on 02/22/21. NOTE Outpatient 20yo RICK 04/22/2021. Presents @ 31w4d with complaints of diarrhea for 2 days, lower abdominal cramping and increased vaginal discharge. Reports good movment. States vaginal discharge is "thicker than urine, not watery." is uncomplicated, only mild anemia Cat I tracing, fetus very active Rare mild irregular UC UA cloudy, SG 1.014, neg ketones, neg nitrites, neg leuk esterase, neg bacteria, small sediment. SVE OOP, parous, long, closed. States "everything is concerning when you are ." Will hydrate and observe. VS,Fishbone, I+O VS, Fishbone, I+O Vital Signs Date Time Temp Pulse Resp B/P (MAP) Pulse Ox O2 Delivery O2 Flow Rate FiO2 02/22/21 15:06 97.4 82 16 111/61 (78) Bekah Mcdaniel CNM Feb 22, 2021 17:08
--- NOTE | 2021-02-22 18:10 | IPNPDOC ---
Text Note Date of Service The patient was seen on 02/22/21. NOTE Outpatient No diarrhea since arrival 3 hours ago. Has voided multiple times. Reports mild irregular pelvic cramping. Denies bleeding, LOF Fetus is very active, reassuring for gestation. Discharged home. Enc bland diet, adequate fluids Cultures ordered for increased stools Keep next appt VS,Fishbone, I+O VS, Fishbone, I+O Vital Signs Date Time Temp Pulse Resp B/P (MAP) Pulse Ox O2 Delivery O2 Flow Rate FiO2 02/22/21 15:06 97.4 82 16 111/61 (78) Bekah Mcdaniel CNM Feb 22, 2021 18:10
[2021-02-22 20:02] LABS: BARBITURATES URINE REFLEX PENDING CONFIRMATION (NEGATIVE)
[2021-02-27 06:08] LABS: Amobarbital Negative (Cutoff=200); Barbiturates Positive (.); Butalbital Positive (.); GC Butalbital 374 ng/mL (Cutoff=200); Pentobarbital Negative (Cutoff=200); Secobarbital Negative (Cutoff=200)
== END 2021-02-22 18:20 | disposition home or self-care (01) ==
LOC: M LDO 14:31
PROVIDERS: ATTEND Advanced Practice Midwife
DX: O26.893 Other specified pregnancy related conditions, third trimester (principal); R19.7 Diarrhea, unspecified; Z3A.31 31 weeks gestation of pregnancy; R25.2 Cramp and spasm; O99.013 Anemia complicating pregnancy, third trimester; D64.9 Anemia, unspecified
CPT/HCPCS: 59025; 80307; 81001; 87086; 96360; 96361; G0378; G0463; G0480

== ENCOUNTER → 2021-03-27 | Outpatient (REF) | payer BC, MEDICAID ==
[~2021-03-27] MED LIST changes: +TUMS750C5 PO
== END ==
LOC: M SFHCWAGY 17:22
PROVIDERS: ATTEND Specialist
DX: Z36.89 Encounter for other specified antenatal screening (principal)

== ENCOUNTER 2021-04-11 22:08 | Outpatient (CLI) | payer BC, MEDICAID ==
[~2021-04-11] VITALS: Ht 162.6 cm; Wt 97.5 kg
[2021-04-11 22:21] VITALS: BP 111/61
[2021-04-11] MEDS ORDERED: PRENTAB9 PO (22:23)
--- NOTE | 2021-04-12 01:20 | IPNPDOC ---
Text Note Date of Service The patient was seen on 04/12/21. NOTE Labor and Delivery Triage Note: S: 20yo at 38w4d presents with c/o contractions. Denie vaginal bleeding or LOF. Reports active movement. O: vss, AF no ctx Cat 1 tracing, with contractions Gen: well appearing, NAD Abd: gravid, soft, nttp cx: 4/50/-2, unchanged from previous exam. Reexamined 2 hours later and was also unchanged A/P: 20yo not in active labor reassuring status -Offered patient reassessment in another 2 hours versus going home and return if contractions persist or worsen. The patient desires to go home and will return if contractions persist or worsen. -[facility] Aniyah Dickson MD VS,Anabel, I+O VS, Anabel, I+O Vital Signs Date Time Temp Pulse Resp B/P (MAP) Pulse Ox O2 Delivery O2 Flow Rate FiO2 04/11/21 22:21 98.9 86 18 111/61 (78) ANIYAH DICKSON MD. April 12, 2021 01:19
== END 2021-04-12 01:22 | disposition home or self-care (01) ==
LOC: M LDO 22:08
PROVIDERS: ATTEND Obstetrics & Gynecology
DX: O47.1 False labor at or after 37 completed weeks of gestation (principal); Z3A.38 38 weeks gestation of pregnancy
CPT/HCPCS: 59025; G0378; G0463

== ENCOUNTER 2021-04-15 08:37 | Inpatient (IN) | payer BC, MEDICAID ==
[2021-04-15] VITALS (38 sets, daily range): BP systolic 100–138; BP diastolic 53–90
[~2021-04-15] VITALS: Ht 162.6 cm; Wt 93.8 kg
[2021-04-15] MEDS ORDERED: LIDOCAINE 1% MDV 20ML VIAL INFIL PRN (11:00)
[2021-04-15] MEDS ORDERED: TRANEXAMIC ACID INJection 1,000 MG in NS 100 ML IV PRN (11:00)
[2021-04-15] MEDS ORDERED: METHYLERGONOVINE MALEATE 0.2 MG/ML VIAL (J2210) IM PRN (11:00)
[2021-04-15] MEDS ORDERED: OXYTOCIN DRIP 30 UNITS in IV 1 EA IV SCH (11:00)
[2021-04-15] MEDS ORDERED: LR 1,000 ML IV SCH (11:00)
[2021-04-15] MEDS ORDERED: PENICILLIN G POTASSIUM IV 5 MU in D5W MINI-BAG PLUS 100 ML IV STA (11:00)
--- NOTE | 2021-04-15 11:12 | HPEPDOC ---
Obstetrical History & Physical General Date of Admission April 15, 2021 at 08:37 Primary Care Physician: CANDELARIA STERLING CNM History of Present Illness Bartolo is a 20-year-old female who is a at 39 weeks gestation with an RICK of 04/22/21 . She initiated care in her first trimester with [facility]. Her has been uncomplicated. She presents to L&D today for an elective induction of labor. She reports active movement, occasional contractions. denies vaginal bleeding or leaking of fluid. Chief Complaint: Induction of labor Information Provided By: Patient Age: 20 : 2 Term: 1 Pre-term: 0 Abortions: 0 Livin Care Care: Good Care Dating Final EDC: April 22, 2021 Final EDC by: LMP EGA at Admission: 39 Antepartum Course Height (inches): 64 Past Medical History Past Obstetrical History : Past Obstetrical History: Primgravida Date of Delivery: May 20, 2019 Gestation: 39 Type of Delivery: Spontaneous Vaginal Del. Sex of : Female (6 lbs 9 oz) Complications: No GOSPEL SINGER History: No pertinent history Past Medical History Medical History Migraines Surgical History: Denies/None Family History Significant Family History: Asthma, Cancer (breast cancer and prostate cancer), Hyperlipidemia, Other (IBS) Social History Marital Status: Family situation: Spouse/partner home * Smoker: non-smoker Alcohol: Denies Drugs: denies Allergies Coded Allergies: No Known Allergies (Verified , 02/16/05) Medications Scheduled No.137/Iron/Folic Acd ( Vitamin Tablet) 1 Each Tablet, 1 TAB PO DAILY Scheduled PRN Calcium Carbonate (Tums) 300 Mg Tab.chew, 750 MG PO Q4HP PRN for HEARTBURN Ondansetron HCl (Zofran) 4 Mg Tablet, 1 TAB PO Q6-8HP PRN for nausea/vomiting Physical Examination Physical Examination GENERAL: Alert and oriented times three. BREAST: . ABDOMEN: Gravid and non-tender to touch. FETUS: Is vertex (VTX) by sterile vaginal examination (SVE), fetus is vertex (VTX) by [place]. EFW: 3400 grams. LUNGS: Clear to auscultation (CTA). EXTREMITIES: Generalized edema. No clonus. Deep tendon reflexes (DTRs) + 2. Vital Signs/I&O Vital Signs Label Value Date Time Patient Temperature 97.8 degrees F 04/15/21 1216 Temperature Source Temporal 04/15/21 1216 Pulse 73 04/15/21 1216 Respiratory Rate 18 bpm 04/15/21 1216 Blood Pressure Assessment 107/72 (84) 04/15/21 1216 Source Automatic Cuff (NIBP) Laboratory Data 24H LABS Laboratory Tests 2 04/15/21 09:09: Serology Scanned Report Hepatitis B Testing Urine Culture: No Growth Pertinent Laboratoy Data Blood Type: AB+ RBC Antibody Screen: Negative HIV: Negative Hepatitis B: Negative Hepatitis C: Negative Rapid Plasma Reagin: Nonreactive Rubella: Immune Chlamydia/Gonorrhea: Negative Group B Streptococcus: Positive Glucose Tolerance Test: 103 Vaginal Examination Dilation: 4 cm (4-5) Effacement: other (75%) Station: -1 Cervical Consistency: Soft Cervical Position: Anterior Presentation: Cephalic presentation Position: Vertex (occiput) Assessment Heart Rate (FHR): 130 Variability: Moderate Accelerations: Positive Tocometer Contractions: Yes Frequency: irregular Assessment/Plan Assessment IUP at 39 weeks gestation GBS positive Category I FHR tracing elective induction of labor Plan Admit to L&D. OOB ad alisha Diet: regular now then clears when on IV Pitocin. Group B Streptococcus (GBS) negative. Start IV antibiotics per order. Labs and intravenous (IV) per unit protocol. Counseled on Pitocin for induction of labor. Anesthesia consult per patient request. Lactated Ringers (LR): Bolus 800 mL prior to epidural, then at 125 mL/hr. Anticipate cervical change and . C-S as appropriate. CANDELARIA STERLING CNM April 15, 2021 11:12
[2021-04-15 11:34] LABS: HEMATOCRIT 32.7 % (36.0-47.0); HEMOGLOBIN 9.9 g/dl (12.0-15.5); MEAN CORPUSCULAR HEMOGLOBIN 24.9 pg (27.0-33.0); MEAN CORPUSCULAR HGB CONC 30.3 g/dl (32.0-36.5); MEAN CORPUSCULAR VOLUME 82.4 fl (80.0-96.0); PLATELET COUNT, AUTOMATED 255 10^3/uL (150-450); RED BLOOD COUNT 3.97 10^6/uL (4.00-5.40); WHITE BLOOD COUNT 9.6 10^3/uL (4.0-10.0)
[2021-04-15] MEDS: PENICILLIN G POTASSIUM IV 2.5 MU in IV 1 EA IV SCH ×3 (15:45→23:47)
[2021-04-15] MEDS ORDERED: FENTANYL 2MCG/ML ROPIVACAINE 0.2% IN 0.9% NACL 100ML IVBAG As Ordered ONE (19:17)
[2021-04-15] MEDS ORDERED: EPIDURAL COMMENT XX SCH (20:55)
[2021-04-15] MEDS ORDERED: NALOXONE INJ 0.4MG/1ML VIAL (J2310 PER 1MG) IV PRN (20:55)
[2021-04-15] MEDS ORDERED: LACTATED RINGER'S 1000 ML IV PRN (20:55)
[2021-04-15] MEDS ORDERED: REFRIGERATOR IV KEYS XX PRN (20:55)
[2021-04-15] MEDS ORDERED: EPIDURAL/PCA KEYS XX PRN (20:55)
[2021-04-15] MEDS ORDERED: diphenhydrAMINE 50MG/ML VIAL (J1200) IV PRN (20:55)
[2021-04-15] MEDS ORDERED: ONDANSETRON 4MG/2ML VIAL IV PRN (20:55)
[2021-04-15] MEDS ORDERED: FENTANYL/ROPIVACAINE/NACL BAG 100 ML EPIDURAL SCH (20:55)
[2021-04-15] MEDS: ePHEDrine SULFATE 25 MG/5 ML(5MG/ML) SYRINGE IV PRN ×2 (21:43→21:53)
[2021-04-16] VITALS (14 sets, daily range): BP systolic 102–129; BP diastolic 54–66
[2021-04-16] MEDS ORDERED: DOCUSATE SODIUM 100MG CAPSULE PO PRN (02:20)
[2021-04-16] MEDS ORDERED: MEASLES,MUMPS,RUBELLA VACCINE INJ (MMR-II) (90707) SC SCH (02:20)
[2021-04-16] MEDS ORDERED: METHYLERGONOVINE MALEATE 0.2 MG TAB PO PRN (02:20)
[2021-04-16] MEDS ORDERED: IBUPROFEN 800 MG TAB PO PRN (02:20)
[2021-04-16] MEDS ORDERED: ANUSOL HC CREAM 30GM TOP PRN (02:20)
[2021-04-16] MEDS ORDERED: RHOGAM 300 MCG (1500 IU) INJ (J2790) IM SCH (02:20)
[2021-04-16] MEDS ORDERED: DIBUCAINE 1% OINTMENT 30GM TOP PRN (02:20)
[2021-04-16] MEDS ORDERED: ACETAMINOPHEN TAB 650MG DOSE (2X325MG) PO PRN (02:20)
--- NOTE | 2021-04-16 02:31 | DNPDOC ---
[facility] Delivery Note Delivery Note DATE OF DELIVERY: 04/16/21 at 0151 PREDELIVERY DIAGNOSIS: 39 weeks' gestation and induction of labor. POST DELIVERY DIAGNOSIS: Delivered. PROCEDURE: Spontaneous vaginal delivery. CODE OFFICIAL: Candelaria Murphy CNM, LEONOR ANESTHESIA: epidural. ESTIMATED BLOOD LOSS: 300 mL. FINDINGS: 8 pounds 3 oz., 3710 grams, male , Score 9/9, terminal meconium. DELIVERY SUMMARY: Bartolo is a 20-year-old female who is a who presented for an elective IOL. She received IV Pitocin for induction and requested an epidural for pain management. AROM to a moderate amount of clear fluid was done at 0001. She progressed to fully dilated at 0142 and pushed to a living male in the OA position with restitution to LOT. The anterior shoulder delivered with gentle downward traction and the corpus immediately followed. The baby was placed [id number] active and crying. The cord was clamped after pulsation ceased and cut by the FOB. A 3-vessel cord was noted. The placenta delivered intact at 0157. Uterine hemostasis was achieved via rapid infusion of IV Pitocin and fundal massage. The vagina, cervix and perineum was inspected and found to be intact. Mom plans to breastfeed. They are naming him Jamshid. All counts of instruments and sponges are correct. Both mom and baby are in stable condition. CANDELARIA MURPHY CNM April 16, 2021 02:31
[2021-04-16] MEDS: ACETAMINOPHEN 500 MG TAB PO PRN ×3 (03:59→16:19)
[2021-04-16] MEDS: IBUPROFEN 600MG TAB PO PRN ×2 (06:11→20:28)
[2021-04-16] MEDS: PRENATAL VITAMINS CHEWABLE TABLET PO SCH (09:35)
[2021-04-16] MEDS ORDERED: ONDANSETRON 4 MG TAB PO ONE (23:35)
[2021-04-17 05:53] VITALS: BP 109/71
--- NOTE | 2021-04-17 07:48 | IPNPDOC ---
Progress Note Date of Service: April 17, 2021 Day#: 1 Progress Note SUBJECT: Doing well without complaints. Ambulating, voiding and pain is well-c ontrolled. Reports minimal lochia. OBJECTIVE: VITAL SIGNS: Within normal limits, afebrile. Alert and oriented times three. Abdomen: Fundus firm at U-2. Soft, NTTP. Ext: neg calf tenderness. ASSESSMENT: day #1 status post . Recovering in stable condition. PLAN: 1. Continue routine care 2. Discharge plans for tomorrow VS, I&O, 24H, Fishbone Vital Signs/I&O Vital Signs Date Time Temp Pulse Resp B/P (MAP) Pulse Ox O2 Delivery O2 Flow Rate FiO2 04/17/21 05:53 98.5 74 16 109/71 (84) 99 Room Air Laboratory Data Microbiology Microbiology 04/15/21 Respiratory Virus Panel (PCR) ([facility]) - Final, Complete MASSIMO BLAIR MD. April 17, 2021 07:48
[2021-04-17] MEDS: PRENATAL VITAMINS CHEWABLE TABLET PO SCH (08:01)
== END 2021-04-17 16:00 | disposition home or self-care (01) | DRG 560 ==
LOC: M LDI 08:37 → M OBS 04-16 03:45
PROVIDERS: ADMIT Advanced Practice Midwife; ATTEND Advanced Practice Midwife
PROC: 3E033VJ Introduction of Other Hormone into Peripheral Vein, Percutaneous Approach (ICD-10-PCS; 2021-04-15)
PROC: 10E0XZZ Delivery of Products of Conception, External Approach (ICD-10-PCS; principal; 2021-04-16)
PROC: 10907ZC Drainage of Amniotic Fluid, Therapeutic from Products of Conception, Via Natural or Artificial Opening (ICD-10-PCS; 2021-04-16)
DX: O77.0 Labor and delivery complicated by meconium in amniotic fluid (principal); Z3A.39 39 weeks gestation of pregnancy; Z37.0 Single live birth; O99.824 Streptococcus B carrier state complicating childbirth

== ENCOUNTER → 2022-03-21 | Outpatient (REF) | payer BC, MEDICAID | LOC: M PLALAB 10:04 | PROVIDERS: ATTEND Obstetrics & Gynecology | DX: Z12.4 Encounter for screening for malignant neoplasm of cervix (principal); N93.0 Postcoital and contact bleeding ==

== ENCOUNTER 2022-04-29 18:39 | Emergency (ER) | payer BC, MEDICAID ==
[~2022-04-29] VITALS: Ht 162.6 cm; Wt 71.2 kg
[2022-04-29 18:50] VITALS: BP 123/76
== END 2022-04-29 22:45 | disposition left against medical advice (07) ==
LOC: M ED 18:39
DX: Z53.29 Procedure and treatment not carried out because of patient's decision for other reasons (principal)

== ENCOUNTER → 2022-12-16 | Outpatient (CLI) | payer BC, MEDICAID ==
[2022-12-16 16:43] LABS: BASO % 0.6 % (0.0-1.0); EOS # 0.2 10^3/uL (0.0-0.5); EOS % 2.5 % (0.0-3.0); HEMOGLOBIN 12.8 g/dl (12.0-15.5); LYMPH # 2.6 10^3/uL (1.5-5.0); LYMPH % 39.4 % (24.0-44.0); MEAN CORPUSCULAR HEMOGLOBIN 28.4 pg (27.0-33.0); MEAN CORPUSCULAR VOLUME 88.7 fl (80.0-96.0); MONO # 0.5 10^3/uL (0.0-0.8); MONO % 7.3 % (2.0-8.0); NEUTROPHILS # 3.3 10^3/uL (1.5-8.5); NEUTROPHILS % 50.2 % (36.0-66.0); PLATELET COUNT, AUTOMATED 285 10^3/uL (150-450); RED BLOOD COUNT 4.51 10^6/uL (4.00-5.40); WHITE BLOOD COUNT 6.5 10^3/uL (4.0-10.0)
[2022-12-16 16:52] LABS: INR 0.98; PROTHROMBIN TIME 13.2 SECONDS (12.5-14.5)
[2022-12-16 16:53] LABS: PARTIAL THROMBOPLASTIN TIME 28.6 SECONDS (24.8-34.2)
[2022-12-16 17:14] LABS: ALBUMIN 4.1 G/DL (3.2-5.2); ALKALINE PHOSPHATASE 70 U/L (46-116); ALT/SGPT 33 U/L (7.0-40); AST/SGOT 27 U/L (<34); BILIRUBIN,TOTAL 0.5 MG/DL (0.3-1.2); BLOOD UREA NITROGEN 11 MG/DL (9-23); CALCIUM LEVEL 9.3 MG/DL (8.5-10.1); CARBON DIOXIDE LEVEL 26 MMOL/L (20-31); CHLORIDE LEVEL 103 MMOL/L (98-107); CREATININE FOR GFR 0.61 MG/DL (0.55-1.30); GLOMERULAR FILTRATION RATE > 60.0 (>60); GLUCOSE, FASTING 87 MG/DL (60-100); SODIUM LEVEL 137 MMOL/L (136-145); TOTAL PROTEIN 7.7 G/DL (5.7-8.2)
== END ==
LOC: M WUC 13:14
PROVIDERS: ATTEND Family Medicine
DX: R42 Dizziness and giddiness (principal)

== ENCOUNTER → 2022-12-30 | Outpatient (CLI) | payer BC, MEDICAID | LOC: M WHC 07:08 | PROVIDERS: ATTEND Family Medicine | DX: R59.1 Generalized enlarged lymph nodes (principal) ==

== ENCOUNTER → 2023-07-06 | Outpatient (CLI) | payer BC, MEDICAID | LOC: M WHC 07:22 | PROVIDERS: ATTEND Nurse Practitioner Family | DX: R10.2 Pelvic and perineal pain (principal) ==

== ENCOUNTER → 2023-12-11 | Outpatient (REF) | payer BC, MEDICAID | LOC: M SFHCWAGY 13:10 | PROVIDERS: ATTEND Nurse Practitioner Family | DX: Z12.4 Encounter for screening for malignant neoplasm of cervix (principal) | CPT/HCPCS: 87624; G0123 ==

== ENCOUNTER → 2023-12-30 | Outpatient (REF) | payer BC, MEDICAID ==
[2023-12-30 16:51] LABS: FREE T4 1.15 NG/DL (0.89-1.76); THYROID STIMULATING HORMONE 2.441 uIU/ML (0.55-4.78)
== END ==
LOC: M SFHCADAM 14:55
PROVIDERS: ATTEND Family Medicine
DX: R63.5 Abnormal weight gain (principal)

== ENCOUNTER → 2024-03-10 | Outpatient (CLI) | payer BC, MEDICAID | LOC: M RAD 06:53 | PROVIDERS: ATTEND Physician Assistant | DX: M54.9 Dorsalgia, unspecified (principal) ==

== ENCOUNTER → 2024-04-14 | Outpatient (REF) | payer BC, MEDICAID ==
[2024-04-14 13:23] LABS: APPEARANCE, URINE HAZY (CLEAR); BACTERIA, URINE AUTO 1+ (NEGATIVE); BILIRUBIN, URINE AUTO NEGATIVE (NEGATIVE); BLOOD, URINE BLOOD NEGATIVE (NEGATIVE); COLOR, URINE YELLOW (YELLOW); GLUCOSE, URINE (UA) AUTO NEGATIVE (NEGATIVE); KETONE, URINE AUTO NEGATIVE (NEGATIVE); LEUKOCYTE ESTERASE, URINE AUTO 3+ (NEGATIVE); MUCUS, URINE SMALL (NEGATIVE); NITRITE, URINE AUTO NEGATIVE (NEGATIVE); PROTEIN, URINE AUTO NEGATIVE (NEGATIVE); RBC, URINE AUTO 4 /HPF (0-3); SQUAMOUS EPITHELIAL CELL UR AU 13 /HPF (0-6); UROBILINOGEN, URINE AUTO 0.2 mg/dL (0.0-2.0); WBC, URINE AUTO 33 /HPF (0-3)
[2024-04-14 14:54] LABS: BASO % 0.7 % (0.0-1.0); EOS # 0.1 10^3/uL (0.0-0.5); EOS % 1.6 % (0.0-3.0); HEMATOCRIT 40.4 % (36.0-47.0); HEMOGLOBIN 12.9 g/dl (12.0-15.5); LYMPH # 1.6 10^3/uL (1.5-5.0); LYMPH % 28.2 % (24.0-44.0); MEAN CORPUSCULAR HEMOGLOBIN 29.3 pg (27.0-33.0); MEAN CORPUSCULAR HGB CONC 31.9 g/dl (32.0-36.5); MEAN CORPUSCULAR VOLUME 91.8 fl (80.0-96.0); MONO # 0.5 10^3/uL (0.0-0.8); MONO % 9.5 % (2.0-8.0); NEUTROPHILS # 3.4 10^3/uL (1.5-8.5); NEUTROPHILS % 59.6 % (36.0-66.0); PLATELET COUNT, AUTOMATED 305 10^3/uL (150-450); WHITE BLOOD COUNT 5.7 10^3/uL (4.0-10.0)
[2024-04-14 15:18] LABS: ALBUMIN 3.9 G/DL (3.2-5.2); ALKALINE PHOSPHATASE 79 U/L (46-116); ALT/SGPT 33 U/L (7.0-40); AST/SGOT 22 U/L (<34); BILIRUBIN,TOTAL 0.7 MG/DL (0.3-1.2); BLOOD UREA NITROGEN 14 MG/DL (9-23); CALCIUM LEVEL 9.3 MG/DL (8.5-10.1); CARBON DIOXIDE LEVEL 28 MMOL/L (20-31); CHLORIDE LEVEL 103 MMOL/L (98-107); CREATININE FOR GFR 0.69 MG/DL (0.55-1.30); GLOMERULAR FILTRATION RATE > 60.0 (>60); GLUCOSE, FASTING 80 MG/DL (60-100); POTASSIUM SERUM 4.4 MMOL/L (3.5-5.1); SODIUM LEVEL 136 MMOL/L (136-145); TOTAL PROTEIN 7.2 G/DL (5.7-8.2)
[2024-04-14 15:19] LABS: THYROID STIMULATING HORMONE 3.195 uIU/ML (0.55-4.78)
[2024-04-14 15:24] LABS: FREE T4 1.08 NG/DL (0.89-1.76)
== END ==
LOC: M SFHCADAM 07:43
PROVIDERS: ATTEND Physician Assistant
DX: R63.1 Polydipsia (principal); R35.89 Other polyuria; N30.00 Acute cystitis without hematuria

== ENCOUNTER → 2025-03-22 | Outpatient (REF) | payer BC, MEDICAID, OTHER | LOC: M SFHCADAM 17:00 | PROVIDERS: ATTEND Family Medicine | DX: R35.0 Frequency of micturition (principal) ==

== ENCOUNTER → 2025-04-14 | Outpatient (CLI) | payer OTHER | LOC: M RAD 10:45 | PROVIDERS: ATTEND Family Medicine | DX: R35.0 Frequency of micturition (principal) ==

== ENCOUNTER → 2025-09-28 | Outpatient (REF) | payer OTHER ==
[~2025-09-28] MED LIST changes: -IBUP-1022 PO; +IBUP600T42 PO
== END ==
LOC: M PLALAB 10:21
PROVIDERS: ATTEND Physician Assistant
DX: N89.8 Other specified noninflammatory disorders of vagina (principal)